=== PATIENT | female | born 1955 | race Asian ===

== ENCOUNTER 2017-04-30 17:16 | Emergency (ER) | payer MEDICAID ==
[~2017-04-30] VITALS: Ht 160 cm; Wt 68.0 kg
[2017-04-30 17:23] VITALS: BP 153/97
[2017-04-30] MEDS: Tetanus/Diptheria/Pertussis Vaccine 0.5ml Syr IM ONE (17:34)
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
[2017-04-30 19:06] VITALS: BP 134/75
[2017-04-30 19:52] VITALS: BP 139/75
[2017-04-30 19:53] VITALS: BP 134/75
--- NOTE | 2017-05-01 09:47 | Diagnostic Imaging Report ---
Indication: Neck pain. Technique: Continuous helical imaging of the cervical spine was obtained transaxially from the skull base to the upper thoracic spine. 2-D coronal and sagittal reformatted images were obtained. Automatic Exposure Control was utilized. Total Dose length Product (DLP): [address] Dose Index Volume (CTDIvol): 2.25, 10.24 mGy Comparison: None Findings: There is no acute fracture or malalignment identified. There is no soft tissue swelling identified. Mild uncovertebral arthritis is demonstrated at multiple levels. Some of the intervertebral discs show mild narrowing. Impression: No acute injury Mild spondylosis [facility] has communicated the preliminary results to the Emergency Department. Their findings are largely concordant with this report. The CT scanner at [facility] is accredited by the [employer] and the scans are performed using dose optimization techniques as appropriate to a performed exam including Automatic Exposure control.
--- NOTE | 2017-05-01 10:58 | Diagnostic Imaging Report ---
Indications: hip pain Findings: Two views of the right hip were obtained. No acute fracture is demonstrated. Alignment of the hip is within normal limits. Soft tissues are unremarkable. Surgical clips in the right hemipelvis demonstrated. A Impression: Negative for acute injury.
--- NOTE | 2017-05-01 10:58 | Diagnostic Imaging Report ---
Indication: Dyspnea Comparison: None A single view chest radiograph was obtained. Findings: Cardiomediastinal appearance is within normal limits for age. Pulmonary vascularity is appropriate. The diaphragmatic contour is smooth and costophrenic angles are sharp. No pleural effusions are identified. The bones are osteopenic. Impression: No acute findings
== END 2017-04-30 19:54 | disposition home or self-care (01) ==
LOC: EDBD 17:16 → EMR 17:32
DX: M54.2 Cervicalgia (principal); S70.02XA Contusion of left hip, initial encounter; Y04.2XXA Assault by strike against or bumped into by another person, initial encounter; Y92.019 Unspecified place in single-family (private) house as the place of occurrence of the external cause; I10 Essential (primary) hypertension; J45.909 Unspecified asthma, uncomplicated; M47.812 Spondylosis without myelopathy or radiculopathy, cervical region
CPT/HCPCS: 71010; 72125; 90471; 90715; 99284